=== PATIENT | male | born 1945 | race Caucasian/White ===

== ENCOUNTER 2018-07-23 18:10 | Inpatient (IN) | payer MEDICARE, OTHER ==
[~2018-07-23] VITALS: Ht 162.6 cm; Wt 71.0 kg
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
--- NOTE | 2018-07-23 18:36 | NUR ---
PT DOES NOT KNOW HIS MEDICATIONS. UNABLE TO DO A COMPLETE MED REC.
--- NOTE | 2018-07-23 18:52 | NUR ---
REPORT GIVEN TO DUNG AMBRIZ RN. ALL QUESTIONS ANSWERED. AWAITING PT TRANSPORT.
[2018-07-23 19:00] LABS: PROTHROMBIN TIME 10.6 Seconds (9.6-11.5)
--- NOTE | 2018-07-23 19:08 | NUR ---
REPORT GIVEN TO KENTERLL CALDERÓN RN.
--- NOTE | 2018-07-23 19:22 | NUR ---
PT. TRANSFERED TO FLOOR AT THIS TIME AFTER [facility] EVAL FOR ADMISSION.
[2018-07-23] MEDS ORDERED: ACETAMINOPHEN 500 MG TABLET PO PRN (19:30)
[2018-07-23] MEDS ORDERED: ONDANSETRON 2MG/ML, 2ML IVPush PRN (19:30)
[2018-07-23] MEDS ORDERED: KETOROLAC 30 MG/1 ML IV PRN (19:30)
[2018-07-23] MEDS ORDERED: CODEINE SULFATE 30 MG TABLET PO PRN (19:30)
[2018-07-23 20:23] VITALS: BP 156/96
[2018-07-23] MEDS ORDERED: APAP/CODEINE 300/60MG TABLET PO PRN (23:00)
[2018-07-23] MEDS ORDERED: ACETAMINOPHEN 325 MG TABLET PO PRN (23:00)
[2018-07-23] MEDS: SODIUM CHLORIDE 0.9% 1,000 ML IV SCH (23:13)
[2018-07-24] MEDS: morphine SULFATE 10 MG/ML, 1ML IVPush PRN ×2 (02:45→10:32)
[2018-07-24 04:23] VITALS: BP 146/83
[2018-07-24 07:06] VITALS: BP 119/85
[2018-07-24] MEDS: LISINOPRIL 10 MG TABLET PO SCH (07:25)
[2018-07-24] MEDS ORDERED: HYDROCHLOROTHIAZIDE 12.5 MG CAPSULE PO ONE (09:00)
[2018-07-24 09:19] LABS: ANION GAP 6 mmol/L (5-15); CALCIUM 8.9 mg/dL (8.5-10.1); CHLORIDE 107 mmol/L (98-107); CREATININE 0.88 mg/dL (0.7-1.3)
[2018-07-24 09:39] LABS: BASOPHILS # (AUTO) 0.04 x10^3/uL (0-0.1); BASOPHILS % (AUTO) 1 % (0-1); EOSINOPHILS # (AUTO) 0.32 x10^3/uL (0-0.4); EOSINOPHILS % (AUTO) 5 % (1-7); LYMPHOCYTES # (AUTO) 1.27 x10^3/uL (1-3.4); LYMPHOCYTES % (AUTO) 19 % (22-44); MD SCAN; MEAN CORPUSCULAR HEMOGLOBIN 27.1 pg (27.5-34.5); MEAN CORPUSCULAR VOLUME 84.5 fL (81-97); MEAN PLATELET VOLUME 7.7 fL (7.4-10.4); MONOCYTES # (AUTO) 0.56 x10^3/uL (0.2-0.8); MONOCYTES % (AUTO) 8 % (2-9); NEUTROPHILS # (AUTO) 4.44 x10^3/uL (1.8-6.8); NEUTROPHILS % (AUTO) 67 % (42-75); PLATELET COUNT 238 x10^3/uL (130-400); RED BLOOD COUNT 4.39 x10^6/uL (4.38-5.82); RED CELL DISTRIBUTION WIDTH 16.4 % (9.4-14.8)
[2018-07-24] MEDS: SODIUM CHLORIDE 0.9% 1,000 ML IV SCH (12:05)
[2018-07-24] MEDS ORDERED: PROPOFOL 50 ML ONE ×2 (12:08→15:43)
[2018-07-24] MEDS ORDERED: FENTANYL PF 250 MCG/5ML ONE (12:09)
[2018-07-24] MEDS ORDERED: MIDAZOLAM 1 MG/ML, 2ML ONE (12:09)
[2018-07-24] MEDS ORDERED: MEPERIDINE/PF 25MG/0.5ML IVPush PRN (13:00)
[2018-07-24] MEDS ORDERED: HYDROmorphone 2 MG/ML, 1ML IVPush PRN (13:00)
[2018-07-24] MEDS ORDERED: hydrALAzine 20 MG/ML, 1ML IV PRN (13:00)
[2018-07-24] MEDS ORDERED: ONDANSETRON 2MG/ML, 2ML IV PRN ×2 (13:00→19:00)
[2018-07-24] MEDS ORDERED: FENTANYL PF 100 MCG/2ML IV PRN (13:00)
[2018-07-24] MEDS ORDERED: DIAZEPAM 5 MG/ML, 2ML IVPush PRN (13:00)
[2018-07-24] MEDS ORDERED: ONDANSETRON ODT 8 MG PO ONE (13:00)
[2018-07-24] MEDS ORDERED: ACETAMINOPHEN 500 MG TABLET PO ONE (13:00)
[2018-07-24] MEDS ORDERED: OXYcodone 5 MG/5 ML ORAL.SOL UDC PO PRN (13:00)
[2018-07-24] MEDS ORDERED: MORPHINE SULFATE 4 MG/ML, 1ML IVPush PRN (13:00)
[2018-07-24] MEDS ORDERED: METOCLOPRAMIDE 5 MG/ML, 2ML IV PRN (13:00)
[2018-07-24] MEDS ORDERED: LABETALOL 5MG/ML, 20ML IV PRN (13:00)
[2018-07-24] MEDS ORDERED: GABAPENTIN 300 MG CAPSULE PO ONE (13:00)
[2018-07-24] MEDS ORDERED: BUPIVACAINE/PF-EPI 0.5% 1:200K ONE (13:09)
[2018-07-24] MEDS ORDERED: BACITRACIN 50,000 UNIT ONE (13:10)
[2018-07-24] MEDS ORDERED: THROMBIN 5,000 UNIT VIAL TP ONE (13:10)
[2018-07-24] MEDS ORDERED: METHOCARBAMOL 1,000 MG in DEXTROSE 5% 100 ML IV ONE ×2 (17:30→20:00)
[2018-07-24] MEDS ORDERED: MAGNESIUM HYDROXIDE 8%, 30ML UDC PO PRN (19:00)
[2018-07-24] MEDS ORDERED: DIPHENHYDRAMINE 50 MG/ML, 1ML IM PRN (19:00)
[2018-07-24] MEDS ORDERED: ACETAMINOPHEN 325 MG TABLET PO PRN (19:00)
[2018-07-24] MEDS ORDERED: PROMETHAZINE 25 MG/ML, 1ML IM PRN (19:00)
[2018-07-24] MEDS ORDERED: HYDROcodone/APAP 10/325 MG TABLET PO PRN (19:00)
[2018-07-24] MEDS ORDERED: OXYcodone/APAP 5/325MG TABLET PO PRN (19:00)
[2018-07-24] MEDS ORDERED: morphine SULFATE 10 MG/ML, 1ML IV PRN (19:00)
[2018-07-24] MEDS ORDERED: HYDROcodone/APAP 5/325 TABLET PO PRN (19:00)
[2018-07-24] MEDS ORDERED: ACETAMINOPHEN 650 MG SUPP PR PRN (19:00)
[2018-07-24] MEDS ORDERED: BISACODYL 10 MG SUPP PR PRN (19:00)
[2018-07-24] MEDS ORDERED: DIPHENHYDRAMINE 50 MG CAPSULE PO PRN (19:00)
[2018-07-24] MEDS ORDERED: DIPHENHYDRAMINE 50 MG/ML, 1ML IVPush PRN (19:00)
[2018-07-24] MEDS: NS + 20MEQ KCL 1,000 ML IV SCH (20:27)
[2018-07-24] MEDS: DEXAMETHASONE 4 MG/ML, 1ML IV SCH (20:27)
[2018-07-24 21:31] VITALS: BP 122/83
[2018-07-24] MEDS: CEFAZOLIN PMX 2GM/50ML 50 ML IVPB SCH (23:23)
[2018-07-25 00:06] VITALS: BP 120/80
[2018-07-25] MEDS: DEXAMETHASONE 4 MG/ML, 1ML IV SCH ×3 (02:55→14:22)
[2018-07-25 03:09] VITALS: BP 133/82
[2018-07-25 03:39] VITALS: BP 130/82
[2018-07-25] MEDS: METHOCARBAMOL 750 MG in DEXTROSE 5% 100 ML IV SCH ×2 (04:02→12:02)
[2018-07-25] MEDS: CEFAZOLIN PMX 2GM/50ML 50 ML IVPB SCH (06:34)
[2018-07-25 06:49] VITALS: BP 143/88
[2018-07-25] MEDS: NS + 20MEQ KCL 1,000 ML IV SCH (07:55)
[2018-07-25] MEDS: LISINOPRIL 10 MG TABLET PO SCH (07:55)
[2018-07-25] MEDS ORDERED: SENNA/DOCUSATE TABLET PO SCH (09:00)
[2018-07-25] MEDS ORDERED: HYDR-3240 PO (11:14)
[2018-07-25] MEDS ORDERED: CYCL-259 PO (11:15)
[2018-07-25] MEDS ORDERED: VENL75CA6 PO (11:26)
[2018-07-25] MEDS ORDERED: DIAZ5TAB4 PO (11:26)
[2018-07-25] MEDS ORDERED: LISI1TAB3 PO (11:26)
[2018-07-25] MEDS ORDERED: DOXY50CA42 PO (11:26)
[2018-07-25] MEDS ORDERED: NAPR220C2 PO (11:26)
[2018-07-25] MEDS ORDERED: ACET-711 PO (11:26)
[2018-07-25 13:50] VITALS: BP 126/78
[2018-07-25] MEDS ORDERED: ROCURONIUM 10 MG/ML,10ML ONE (15:00)
[2018-07-25] MEDS ORDERED: LIDOCAINE-MPF 2% ,5ML ONE (15:00)
[2018-07-25] MEDS ORDERED: SUCCINYLCHOLINE 20 MG/ML, 10ML ONE (15:00)
[2018-07-25] MEDS ORDERED: DEXAMETHASONE 4 MG/ML, 5ML ONE (15:00)
[2018-07-25] MEDS ORDERED: CEFAZOLIN 1,000 MG ONE (15:00)
[2018-07-26] MEDS ORDERED: CYCLOBENZAPRINE 10 MG TABLET PO PRN (06:00)
== END 2018-07-25 16:30 | disposition home or self-care (01) | DRG 472 ==
LOC: ED 18:17 → 4NOR 18:22 → SUATTDRO 18:58 → ED 19:20 → DCLOUNGE 07-25 16:12
PROVIDERS: ADMIT Hospitalist; ATTEND Hospitalist
PROC: 0RB30ZZ Excision of Cervical Vertebral Disc, Open Approach (ICD-10-PCS; 2018-07-24)
PROC: 4A11X4G Monitoring of Peripheral Nervous Electrical Activity, Intraoperative, External Approach (ICD-10-PCS; 2018-07-24)
PROC: 0RG10A0 Fusion of Cervical Vertebral Joint with Interbody Fusion Device, Anterior Approach, Anterior Column, Open Approach (ICD-10-PCS; principal; 2018-07-24 15:30)
DX: S12.500A Unspecified displaced fracture of sixth cervical vertebra, initial encounter for closed fracture (principal); S22.31XA Fracture of one rib, right side, initial encounter for closed fracture; S13.160A Subluxation of C5/C6 cervical vertebrae, initial encounter; M48.02 Spinal stenosis, cervical region; M43.12 Spondylolisthesis, cervical region; I10 Essential (primary) hypertension; G89.29 Other chronic pain; D64.9 Anemia, unspecified; J43.9 Emphysema, unspecified; W10.9XXA Fall (on) (from) unspecified stairs and steps, initial encounter; Y93.89 Activity, other specified; Y92.89 Other specified places as the place of occurrence of the external cause; Y99.8 Other external cause status; Z87.891 Personal history of nicotine dependence; Z74.01 Bed confinement status; Z79.899 Other long term (current) drug therapy
CPT/HCPCS: 36415; 72040; 80048; 85025; 85610; 85730; 93005; 99285; C1713; C1776; G0378; J0690; J1100; J1885; J2250; J2704; J3010; J3480; J3490; Q0162; C1762; C1778; J0330; J2270; J2800; J7030